=== PATIENT | female | born 1990 | race Caucasian/White ===

== ENCOUNTER 2017-07-13 09:30 | Inpatient (IN) | payer MEDICAID, OTHER ==
[2017-07-13] VITALS (122 sets, daily range): BP systolic 108–188; BP diastolic 65–115; PULSE 65–106; RESP 16–19; TEMP 97.5–98
[~2017-07-13] VITALS: Ht 167.6 cm; Wt 112.0 kg
[~2017-07-13 09:30] MED LIST: MIRA33504 PO
[2017-07-13] MEDS ORDERED: LACTATED RINGER'S 1000 ML INJ 1,000 ML IV SCH (11:01)
[2017-07-13] MEDS ORDERED: LACTATED RINGER'S 1000 ML INJ 1,000 ML IV PRN (11:01)
--- NOTE | 2017-07-13 11:12 | PD ---
HPI Chief Complaint ROM Date Seen: Jul 13, 2017 Travel History International Travel<30 Days: No Contact w/Intl Traveler<30Days: No Known Affected Area: No History of Present Illness HPI Pt is a 27y/o @ 34.4wks by 1st TM US not c/w LMP. She had initial PNC in [place] and recently relocated to [place] where she has been seen twice by Dr. Matamoros. She presents this morning to triage c/o LOF at 00:45am (clear). She reports ctx in her back q10m. +FM. 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) -- methadone use (60mg BID) -- trichamonis this preg (s/p abx and VERONICA) Weeks Gestation: 34 Para: 0 : 2 Last Menstrual Period: Jul 13, 2017 History Past Medical History Narrative Medical HCV h/o IVDA methadone use Obstetric History Obstetric History SAB x1 Past Surgical History Surgical History: No Previous Surgery Family History Family History: Negative Social History Alcohol Use: No Tobacco Use: Yes (1/2 PPD) Substance Abuse: Yes (h/o IVDA, opioids, on methadone) Allergies-Medications (Allergen,Severity, Reaction): Coded Allergies: amoxicillin (Unverified Allergy, Severe, SWELLING, 04/03/17) Uncoded Allergies: nyquil/dayquil (Adverse Reaction, Severe, Swelling, 09/23/11) Home Meds Active Scripts Polyethylene Glycol 3350 Powder (Miralax Powder) 17 Gm Powd, 17 GM PO DAILY for Constipation, #1 BOTTLE Mix and dissolve one measuring cap-ful (17 grams) in water or juice. Prov:Reji Moses MD 07/12/16 Review of Systems Except as stated in HPI: all other systems reviewed are Neg Physical Exam Vital Signs Date Time Temp Pulse Resp B/P (MAP) Pulse Ox O2 Delivery O2 Flow Rate FiO2 07/13/17 10:51 79 141/88 (105) Narrative General: well developed, well nourished, no acute distress HEENT: normocephalic atraumatic, extraocular movements intact, neck supple Abdomen: soft, gravid, nontender, nondistended Extremities: full range of motion, no pedal edema, no calf tenderness Skin: normal coloration, no rashes, no suspicious skin lesions noted Neurologic: cranial nerves 2-12 grossly intact, normal muscle tone, normal gait Psychiatric: normal mood and affect, appropriate FHTs: 135, moderate variability, occasional variables [place]: irregular Cvx: 3/70/-3 Data Data Vital Signs Reviewed: Yes Orders Orders Vital Signs (Adult) .ON ADMISSION (07/13/17 10:44) ^ Labor Status (07/13/17 10:44) ^ Non Stress Test (07/13/17 10:44) Pamg-1 Test .ONCE (07/13/17 10:44) Ob (2e) Additional Admit Info (07/13/17 11:02) Admit To Inpatient (07/13/17 ) Vital Signs (Adult) .Per protocol (07/13/17 11:01) Heart (07/13/17 11:01) Amnioinfusion (07/13/17 11:01) Urinary Catheter Management .ONCE (07/13/17 11:01) Diet Liquid (07/13/17 Lunch) Lactated Ringer's 1000 Ml Inj (Lr 1000 M (07/13/17 11:01) Lactated Ringer's 1000 Ml Inj (Lr 1000 M (07/13/17 11:01) Sodium Chlorid 0.9% 500 Ml Inj (Ns 500 M (07/13/17 11:15) Sodium Chlor 0.9% 1000 Ml Inj (Ns 1000 M (07/13/17 11:21) Lidocaine 1% Inj (50 Ml) (Xylocaine 1% I (07/13/17 11:15) Citric Acid-Sodium Citrate Liq (Bicitra (07/13/17 11:15) Ondansetron Inj (Zofran Inj) (07/13/17 11:15) Fentanyl Inj (Fentanyl Inj) (07/13/17 11:15) Fentanyl Inj (Fentanyl Inj) (07/13/17 11:15) Complete Blood Count With Diff (07/13/17 11:01) Hold Clot (07/13/17 11:01) Abo/Rh Blood Type (07/13/17 11:01) Urinalysis - C+S If Indicated (07/13/17 11:01) Drug Screen, Random Urine (07/13/17 11:01) Rapid Plasma Regin (Rpr) W Ttr (07/13/17 11:01) Resp Oxygen Non Rebreathe Mask (07/13/17 ) ^ Epidural / Intrathecal Infus (07/13/17 11:01) Oxytocin 30 Units-500ml Premix (Pitocin (07/13/17 11:15) Lidocaine 1% Inj (50 Ml) (Xylocaine 1% I (07/13/17 11:15) Light Mineral Oil (Muri-Lube Oil) (07/13/17 11:15) ^ Non Stress Test (07/13/17 11:01) Response To Medication .Post New Med Administration, Reaction (07/13/17 11:01) ^ Discontinue Medication (07/13/17 11:01) Oxytocin Drip (2-2-30) (07/13/17 11:15) Inpatient Certification (07/13/17 ) Comprehensive Metabolic Panel (07/13/17 11:01) Protein Creat Ratio, Random Ur (07/13/17 11:01) MDM Plan 27y/o @ 34.4wks with: 1. PPROM -- grossly ruptured -- admit to L&D, IOL with pitocin given >34wks EGA 2. FWB -- cat 2 tracing -- GBS unknown, cx sent; if positive, vanc given PCN severe allergy 3. HCV -- unknown viral load 4. h/o IVDA -- on methadone maintenance 60mg BID 5. elevated BPs -- asx, labs ordered to r/o PIH Diagnosis Diagnosis: Primary Impression: premature rupture of membranes (PPROM) with onset of labor within 24 hours of rupture in third trimester, antepartum Additional Impressions: 34 weeks gestation of Elevated blood pressure affecting in third trimester, antepartum Methadone maintenance treatment affecting in third trimester Viral hepatitis complicating , third trimester Jose Ramirez MD Jul 13, 2017 11:12
[2017-07-13] MEDS ORDERED: MINERAL OIL 10 ML VIAL TOPICAL PRN (11:15)
[2017-07-13] MEDS ORDERED: LIDOCAINE HCL 1% 50 ML VIAL INFIL PRN (11:15)
[2017-07-13] MEDS ORDERED: LIDOCAINE HCL 1% 50 ML VIAL I-DERMAL PRN (11:15)
[2017-07-13] MEDS ORDERED: SODIUM CHLORID 0.9% 500 ML INJ 500 ML IV PRN (11:15)
[2017-07-13] MEDS ORDERED: ONDANSETRON HCL 4 MG/2 ML VIAL IV PUSH PRN (11:15)
[2017-07-13] MEDS ORDERED: OXYTOCIN 30 UNITS-500ML PREMIX 500 ML IV SCH ×2 (11:15→20:45)
[2017-07-13] MEDS ORDERED: CITRIC ACID-SODIUM CITRATE LIQ 30 ML UDC PO SCH (11:15)
[2017-07-13] MEDS ORDERED: OXYTOCIN 30 UNITS-500ML PREMIX 500 ML IV ONE (11:15)
[2017-07-13] MEDS ORDERED: SODIUM CHLOR 0.9% 1000 ML INJ 1,000 ML IV PRN (11:21)
[2017-07-13 11:35] LABS: BLOOD, URINE SMALL (NEG); COMMENT (UR) CULT NOT INDICATED; CULTURE IF INDICATED CULT NOT INDICATED; GLUCOSE,URINE NEG (NEG); KETONE, URINE NEG (NEG); MUCUS URINE FEW /lpf (OCC); NITRITE,URINE NEG (NEG); SQUAMOUS EPITHELIAL CELL URINE 7 /hpf (0-5); URINE COLOR YELLOW (YELLW/STRAW)
[2017-07-13 12:39] LABS: BASOPHIL % 0.1 % (0.0-2.0); EOSINOPHIL # 0.2 TH/MM3 (0-0.4); EOSINOPHIL % 1.7 % (0.0-4.0); HEMATOCRIT 39.1 % (35.0-46.0); HEMO FLAGS DIFF FINAL; LYMPH % 18.3 % (9.0-44.0); LYMPHOCYTE # 2.2 TH/MM3 (1.0-4.8); MEAN CELL VOLUME 92.7 FL (80.0-100.0); MEAN CORPUSCULAR HEMOGLOBIN 31.1 PG (27.0-34.0); MEAN CORPUSCULAR HGB CONC 33.5 % (32.0-36.0); MONO % 5.8 % (0.0-8.0); NEUT % 74.1 % (16.0-70.0); PLATELET COUNT 206 TH/MM3 (150-450); RED BLOOD COUNT 4.22 MIL/MM3 (4.00-5.30); RED CELL DISTRIBUTION WIDTH 13.4 % (11.6-17.2); WHITE BLOOD COUNT 12.2 TH/MM3 (4.0-11.0)
[2017-07-13 13:05] LABS: ALT (GPT) 62 U/L (10-53); ANION GAP 7 MEQ/L (5-15); AST (GOT) 35 U/L (15-37); BICARBONATE 22.2 MEQ/L (21.0-32.0); BLOOD UREA NITROGEN 13 MG/DL (7-18); CHLORIDE 103 MEQ/L (98-107); GLOMERULAR FILTRATION RATE 125 ML/MIN (>89); POTASSIUM 4.3 MEQ/L (3.5-5.1); SODIUM (NA) 132 MEQ/L (136-145)
[2017-07-13 13:08] LABS: ALKALINE PHOSPHATASE 110 U/L (45-117); TOTAL BILIRUBIN ADULT 0.3 MG/DL (0.2-1.0)
[2017-07-13] MEDS ORDERED: METH40TA PO (13:39)
[2017-07-13] MEDS ORDERED: ePHEDrine/NS 25 MG/5 ML SYR ONE ×2 (14:00→14:11)
[2017-07-13] MEDS ORDERED: fentaNYL 2MCG-BUPIV 0.125% INJ 100 ML ONE (14:01)
[2017-07-13] MEDS ORDERED: BUPIVACAINE HCL PF 0.25% 10 ML VIAL ONE (14:10)
[2017-07-13] MEDS ORDERED: ePHEDrine/NS 25 MG/5 ML SYR IV PUSH PRN (15:15)
[2017-07-13] MEDS ORDERED: DO NOT ADMINISTER ANTICOAGULANTS PRN (15:15)
[2017-07-13] MEDS ORDERED: fentaNYL 2MCG-BUPIV 0.125% 100 ML EPIDURAL SCH (15:15)
[2017-07-13] MEDS ORDERED: NO SYSTEM NARCOTICS PRN (15:15)
[2017-07-13] MEDS ORDERED: DIPHTH/TETANUS/ACEL PERTUSSIS (BOOSTER) 0.5 ML VIAL/PFS IM ONE (16:00)
[2017-07-13] MEDS ORDERED: MEASLES, MUMPS, RUBELLA VACCINE 0.5 ML VIAL SQ ONE (16:00)
[2017-07-13] MEDS ORDERED: ALUMINUM/MAGNESIUM/SIMETH 30 ML CUP PO PRN (20:45)
[2017-07-13] MEDS ORDERED: WITCH HAZEL 50%/GLYCERIN 12.5% 40 PAD JAR TOPICAL PRN (20:45)
[2017-07-13] MEDS ORDERED: IBUPROFEN 800 MG TAB PO PRN (20:45)
[2017-07-13] MEDS ORDERED: ONDANSETRON ODT 4 MG TAB PO PRN (20:45)
[2017-07-13] MEDS ORDERED: BENZOCAINE 20% TOPICAL SPRAY 60 ML CAN TOPICAL PRN (20:45)
[2017-07-13] MEDS ORDERED: SODIUM CHLORIDE 0.9% FLUSH 10 ML FLUSH IV FLUSH PRN (20:45)
[2017-07-13] MEDS ORDERED: ACETAMINOPHEN 325 MG TAB PO PRN (20:45)
[2017-07-13] MEDS ORDERED: DOCUSATE SODIUM 50 MG/SENNA 8.6 MG TAB PO PRN (20:45)
--- NOTE | 2017-07-13 20:45 | HHI.PR ---
[employer] Note Note HPI Chief Complaint ROM Date Seen: Jul 13, 2017 Travel History International Travel<30 Days: No Contact w/Intl Traveler<30Days: No Known Affected Area: No History of Present Illness HPI Pt is a 27y/o @ 34.4wks by 1st TM US not c/w LMP. She had initial PNC in [place] and recently relocated to [place] where she has been seen twice by Dr. Matamoros. She presents this morning to triage c/o LOF at 00:45am (clear). She reports ctx in her back q10m. +FM. 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) -- methadone use (60mg BID) -- trichamonis this preg (s/p abx and VERONICA) Weeks Gestation: 34 Para: 0 : 2 Last Menstrual Period: Jul 13, 2017 History (Limited) History Past Medical History Narrative Medical HCV h/o IVDA methadone use Obstetric History Obstetric History SAB x1 Past Surgical History Surgical History: No Previous Surgery Family History Family History: Negative Social History Alcohol Use: No Tobacco Use: Yes (1/2 PPD) Substance Abuse: Yes (h/o IVDA, opioids, on methadone) Allergies-Medications Allergies-Medications (Allergen,Severity, Reaction): Coded Allergies: amoxicillin (Unverified Allergy, Severe, SWELLING, 04/03/17) Uncoded Allergies: nyquil/dayquil (Adverse Reaction, Severe, Swelling, 09/23/11) Home Meds Active Scripts Polyethylene Glycol 3350 Powder (Miralax Powder) 17 Gm Powd, 17 GM PO DAILY for Constipation, #1 BOTTLE Mix and dissolve one measuring cap-ful (17 grams) in water or juice. Prov:Reji Moses MD 07/12/16 ROS Review of Systems Except as stated in HPI: all other systems reviewed are Neg Physical Exam Physical Exam Vital Signs Date Time Temp Pulse Resp B/P (MAP) Pulse Ox O2 Delivery O2 Flow Rate FiO2 07/13/17 10:51 79 141/88 (105) Narrative General: well developed, well nourished, no acute distress HEENT: normocephalic atraumatic, extraocular movements intact, neck supple Abdomen: soft, gravid, nontender, nondistended Extremities: full range of motion, no pedal edema, no calf tenderness Skin: normal coloration, no rashes, no suspicious skin lesions noted Neurologic: cranial nerves 2-12 grossly intact, normal muscle tone, normal gait Psychiatric: normal mood and affect, appropriate FHTs: 135, moderate variability, occasional variables [place]: irregular Cvx: 3/70/-3 Data Data Data Vital Signs Reviewed: Yes Orders Orders Vital Signs (Adult) .ON ADMISSION (07/13/17 10:44) ^ Labor Status (07/13/17 10:44) ^ Non Stress Test (07/13/17 10:44) Pamg-1 Test .ONCE (07/13/17 10:44) Ob (2e) Additional Admit Info (07/13/17 11:02) Admit To Inpatient (07/13/17 ) Vital Signs (Adult) .Per protocol (07/13/17 11:01) Heart (07/13/17 11:01) Amnioinfusion (07/13/17 11:01) Urinary Catheter Management .ONCE (07/13/17 11:01) Diet Liquid (07/13/17 Lunch) Lactated Ringer's 1000 Ml Inj (Lr 1000 M (07/13/17 11:01) Lactated Ringer's 1000 Ml Inj (Lr 1000 M (07/13/17 11:01) Sodium Chlorid 0.9% 500 Ml Inj (Ns 500 M (07/13/17 11:15) Sodium Chlor 0.9% 1000 Ml Inj (Ns 1000 M (07/13/17 11:21) Lidocaine 1% Inj (50 Ml) (Xylocaine 1% I (07/13/17 11:15) Citric Acid-Sodium Citrate Liq (Bicitra (07/13/17 11:15) Ondansetron Inj (Zofran Inj) (07/13/17 11:15) Fentanyl Inj (Fentanyl Inj) (07/13/17 11:15) Fentanyl Inj (Fentanyl Inj) (07/13/17 11:15) Complete Blood Count With Diff (07/13/17 11:01) Hold Clot (07/13/17 11:01) Abo/Rh Blood Type (07/13/17 11:01) Urinalysis - C+S If Indicated (07/13/17 11:01) Drug Screen, Random Urine (07/13/17 11:01) Rapid Plasma Regin (Rpr) W Ttr (07/13/17 11:01) Resp Oxygen Non Rebreathe Mask (07/13/17 ) ^ Epidural / Intrathecal Infus (07/13/17 11:01) Oxytocin 30 Units-500ml Premix (Pitocin (07/13/17 11:15) Lidocaine 1% Inj (50 Ml) (Xylocaine 1% I (07/13/17 11:15) Light Mineral Oil (Muri-Lube Oil) (07/13/17 11:15) ^ Non Stress Test (07/13/17 11:01) Response To Medication .Post New Med Administration, Reaction (07/13/17 11:01) ^ Discontinue Medication (07/13/17 11:01) Oxytocin Drip (2-2-30) (07/13/17 11:15) Inpatient Certification (07/13/17 ) Comprehensive Metabolic Panel (07/13/17 11:01) Protein Creat Ratio, Random Ur (07/13/17 11:01) MDM MDM Plan 27y/o @ 34.4wks with: 1. PPROM -- grossly ruptured -- admit to L&D, IOL with pitocin given >34wks EGA 2. FWB -- cat 2 tracing -- GBS unknown, cx sent; if positive, vanc given PCN severe allergy 3. HCV -- unknown viral load 4. h/o IVDA -- on methadone maintenance 60mg BID 5. elevated BPs -- asx, labs ordered to r/o PIH Diagnosis Diagnosis: Primary Impression: premature rupture of membranes (PPROM) with onset of labor within 24 hours of rupture in third trimester, antepartum Additional Impressions: 34 weeks gestation of Elevated blood pressure affecting in third trimester, antepartum Methadone maintenance treatment affecting in third trimester Viral hepatitis complicating , third trimester Jose Ramirez MD Jul 13, 2017 11:12 Jose Ramirez MD Jul 13, 2017 20:45
--- NOTE | 2017-07-13 20:45 | PD.OB.DELI ---
Weeks gestation: 34 Gest age assessed date: Jul 13, 2017 Gest age assessed time: 12:00 Pt started active labor?: Yes Medical induction of labor?: Yes Artificial rupture of membrane: No Anesthesia: Epidural Episiotomy: None Vaginal Delivery: Normal Presentation: Occiput anterior Nuchal Cord: None Delayed cord clamping (45 sec): Yes : Female Delivery date: Jul 13, 2017 Delivery time: 20:26 One Minute : 7 Five Minute : 8 Weight: 2110g Placenta: Manual removal, Not Intact Laceration: 1 deg Repair: Vicryl running Estimated blood loss: 200 Jose Ramirez MD Jul 13, 2017 20:45
[2017-07-13] MEDS: SODIUM CHLORIDE 0.9% FLUSH 10 ML FLUSH IV FLUSH SCH (21:00)
[2017-07-13] MEDS ORDERED: MISOPROSTOL 200 MCG TAB RECTAL SCH (22:30)
[2017-07-14 00:30] VITALS: BP 131/86; PULSE 97; RESP 20; TEMP 98
[2017-07-14 07:00] VITALS: BP 123/80; PULSE 86; RESP 20; TEMP 98
[2017-07-14] MEDS ORDERED: METHADONE HCL 10 MG TAB PO SCH (07:00)
[2017-07-14] MEDS: METHADONE HCL 10 MG TAB PO SCH ×2 (07:00→18:52)
--- NOTE | 2017-07-14 07:57 | HHI.OB ---
Subjective Post Day: 1 Remarks Patient is a 27 year old who is day # 1 s/p vaginal delivery. AFVSS overnight. Lochia like a period. Mild cramping. Denies dysuria. No breast tenderness. Baby in NICU. Appetite good. No nausea or vomiting. Ambulating well. Denies calf pain or shortness of breath. Otherwise, she is doing well this morning and has no other concerns. Objective Vitals/I&O Vital Signs Date Time Temp Pulse Resp B/P (MAP) Pulse Ox O2 Delivery O2 Flow Rate FiO2 07/14/17 00:30 98.0 97 20 131/86 (101) 07/13/17 22:45 85 108/69 (82) 07/13/17 22:29 85 110/65 (80) 07/13/17 22:29 18 07/13/17 22:18 89 125/83 (97) 07/13/17 21:55 16 07/13/17 21:46 106 138/83 (101) 07/13/17 21:21 84 145/90 (108) 07/13/17 21:16 94 145/99 (114) 07/13/17 21:10 16 07/13/17 21:00 87 128/93 (105) 07/13/17 20:54 16 07/13/17 20:52 83 151/98 (115) 07/13/17 20:46 95 144/102 (116) 07/13/17 20:16 87 07/13/17 20:01 79 140/89 (106) 07/13/17 19:46 80 147/90 (109) 07/13/17 19:40 76 07/13/17 19:35 73 07/13/17 19:31 70 140/94 (109) 07/13/17 19:30 70 07/13/17 19:25 81 07/13/17 19:20 71 07/13/17 19:15 97.8 16 07/13/17 19:15 67 07/13/17 19:15 73 146/92 (110) 07/13/17 19:10 70 07/13/17 19:05 82 07/13/17 19:01 74 140/96 (111) 07/13/17 19:00 73 07/13/17 18:50 75 07/13/17 18:45 73 144/95 (111) 07/13/17 18:45 73 07/13/17 18:40 74 07/13/17 18:35 78 07/13/17 18:30 76 120/81 (94) 07/13/17 18:30 80 07/13/17 18:25 73 07/13/17 18:20 72 07/13/17 18:16 73 126/81 (96) 07/13/17 18:15 69 16 07/13/17 18:10 83 07/13/17 18:05 70 07/13/17 18:00 70 07/13/17 18:00 71 125/85 (98) 07/13/17 17:55 68 07/13/17 17:50 68 07/13/17 17:49 70 07/13/17 17:49 131/77 (95) 07/13/17 17:45 70 07/13/17 17:40 66 17 07/13/17 17:35 65 07/13/17 17:30 72 07/13/17 17:25 65 07/13/17 17:20 81 07/13/17 17:15 71 07/13/17 17:10 75 07/13/17 17:05 72 07/13/17 17:00 72 07/13/17 17:00 98.0 17 07/13/17 16:58 67 138/86 (103) 07/13/17 16:55 67 07/13/17 16:50 77 07/13/17 16:49 81 145/95 (112) 07/13/17 16:46 77 156/99 (118) 07/13/17 16:45 74 07/13/17 16:40 73 07/13/17 16:35 75 07/13/17 16:32 18 07/13/17 16:31 75 07/13/17 16:30 70 07/13/17 16:30 17 07/13/17 16:25 79 07/13/17 16:20 76 07/13/17 16:16 71 124/79 (94) 07/13/17 16:15 67 07/13/17 16:10 83 07/13/17 16:05 75 07/13/17 16:01 71 127/78 (94) 07/13/17 16:00 76 17 07/13/17 15:55 73 07/13/17 15:50 72 07/13/17 15:45 67 132/88 (103) 07/13/17 15:45 70 07/13/17 15:41 18 07/13/17 15:40 72 07/13/17 15:37 73 129/80 (96) 07/13/17 15:35 72 07/13/17 15:30 75 07/13/17 15:30 111/99 (103) 07/13/17 15:30 70 07/13/17 15:30 17 07/13/17 15:25 68 07/13/17 15:20 87 07/13/17 15:16 75 131/83 (99) 07/13/17 15:15 75 17 07/13/17 15:11 74 07/13/17 15:11 138/83 (101) 07/13/17 15:10 75 07/13/17 15:06 68 127/75 (92) 07/13/17 15:05 74 07/13/17 15:00 84 132/80 (97) 07/13/17 15:00 70 07/13/17 14:59 17 07/13/17 14:56 79 126/87 (100) 07/13/17 14:55 78 07/13/17 14:50 84 07/13/17 14:50 76 144/84 (104) 07/13/17 14:46 81 145/91 (109) 07/13/17 14:45 16 07/13/17 14:45 82 07/13/17 14:41 82 140/91 (107) 07/13/17 14:40 83 07/13/17 14:39 79 147/90 (109) 07/13/17 14:37 81 144/94 (111) 07/13/17 14:36 83 149/109 (122) 07/13/17 14:35 88 07/13/17 14:31 82 184/112 (136) 07/13/17 14:30 17 07/13/17 14:30 78 07/13/17 14:26 168/98 (121) 07/13/17 14:26 86 07/13/17 14:25 87 07/13/17 14:21 85 07/13/17 14:21 188/112 (137) 07/13/17 14:20 87 07/13/17 14:17 86 167/115 (132) 07/13/17 14:15 91 07/13/17 14:15 97.8 07/13/17 14:10 18 07/13/17 14:10 77 07/13/17 14:05 72 143/101 (115) 07/13/17 13:45 19 07/13/17 13:30 73 144/96 (112) 07/13/17 13:30 18 07/13/17 13:08 74 143/96 (112) 07/13/17 13:07 19 07/13/17 13:00 76 151/102 (118) 07/13/17 12:40 18 07/13/17 12:34 72 143/95 (111) 07/13/17 12:30 97.5 07/13/17 12:28 17 07/13/17 12:22 72 132/96 (108) 07/13/17 12:00 19 07/13/17 11:53 78 139/96 (110) 07/13/17 11:11 80 122/84 (97) 07/13/17 10:51 79 141/88 (105) Objective Remarks GENERAL: Well-nourished, well-developed patient. Obese. CARDIOVASCULAR: Regular rate and rhythm without murmurs, gallops, or rubs. +LE tightness, 1+ edema to knee. RESPIRATORY: Breath sounds equal bilaterally. No accessory muscle use. ABDOMEN/GI: Abdomen soft, non-tender. Fundus: Firm, non-tender at umbilicus. GENITOURINARY: Light bleeding noted on pad. EXTREMITIES: No cyanosis or edema, non-tender, without signs of DVT. Medications and IVs Current Medications Medications (Trade) Dose Ordered Sig/Brinda Route Start Time Stop Time Status Last Admin Miscellaneous Information No systemic narcotics to be given except... UNSCH PRN .XX 07/13/17 15:15 07/14/17 15:14 Miscellaneous Information DO NOT ADMINISTER ANY ANTICOAGUL... UNSCH PRN .XX 07/13/17 15:15 07/14/17 15:14 Fentanyl/ Bupivacaine HCl 100 ml @ 0 mls/hr TITRATE EPIDURAL 07/13/17 15:15 07/13/17 16:32 (ePHEDrine/NS 25 MG/5 ML SYR) 10 mg UNSCH PRN IV PUSH 07/13/17 15:15 07/14/17 15:14 (NS Flush) 2 ml BID IV FLUSH 07/13/17 21:00 (NS Flush) 2 ml UNSCH PRN IV FLUSH 07/13/17 20:45 (Tylenol) 650 mg Q4H PRN PO 07/13/17 20:45 (Motrin) 800 mg Q8H PRN PO 07/13/17 20:45 (Americaine 20% Top Spr) 1 spray Q4H PRN TOPICAL 07/13/17 20:45 (Tucks Pads) 1 applic QID PRN TOPICAL 07/13/17 20:45 (Katarina-Colace) 2 tab Q12H PRN PO 07/13/17 20:45 (Mag-Al Plus Susp Liq) 15 ml Q8H PRN PO 07/13/17 20:45 (Zofran Odt) 4 mg Q6H PRN PO 07/13/17 20:45 (Dolophine) 60 mg BID@0700,1900 PO 07/14/17 07:00 07/14/17 07:00 Assessment/Plan Assessment and Plan 27 y/o female who is PPD# 1 s/p . PPROM, GBS negative. Cocaine, Methadone, Tobacco use complicated period. Required cytotec for post- hemorrhage yesterday evening. Post- care -VS within normal limits -Repeat CBC today for post- hemorrhage surveillance. Clinically appears well -Continue routine care. -Tylenol and Motrin PRN pain in addition to home Methadone -Encouraged OOB. Advised pelvic rest for 6 wks. -Re: ctrl, she would like OCPs, does not desire Depo or long-acting option.. -Anticipate discharge tomorrow. Increased antepartum BP -Now wnl, will monitor -Will recommend 1 week follow up at discharge Substance Use -Hx IVDU, clean 1 yr prior to relapse with PO drugs in 1st trimester -Methadone 60mg BID continued post- -+Cocaine on UDS HepC -unknown viral load Tobacco use complicating Celsa Alonzo DR., MD R2 Jul 14, 2017 07:57
[2017-07-14] MEDS: SODIUM CHLORIDE 0.9% FLUSH 10 ML FLUSH IV FLUSH SCH ×2 (09:00→21:00)
[2017-07-14 11:11] LABS: AUTOMATED NEUTROPHIL # 7.6 TH/MM3 (1.8-7.7); BASOPHIL % 0.3 % (0.0-2.0); EOSINOPHIL # 0.2 TH/MM3 (0-0.4); EOSINOPHIL % 1.7 % (0.0-4.0); HEMATOCRIT 35.1 % (35.0-46.0); HEMO FLAGS DIFF FINAL; LYMPH % 20.4 % (9.0-44.0); LYMPHOCYTE # 2.2 TH/MM3 (1.0-4.8); MEAN CELL VOLUME 93.5 FL (80.0-100.0); MEAN CORPUSCULAR HEMOGLOBIN 31.5 PG (27.0-34.0); MEAN CORPUSCULAR HGB CONC 33.7 % (32.0-36.0); MONO % 5.8 % (0.0-8.0); NEUT % 71.8 % (16.0-70.0); PLATELET COUNT 187 TH/MM3 (150-450); RED BLOOD COUNT 3.76 MIL/MM3 (4.00-5.30); RED CELL DISTRIBUTION WIDTH 13.7 % (11.6-17.2); WHITE BLOOD COUNT 10.5 TH/MM3 (4.0-11.0)
[2017-07-14 11:41] LABS: ANION GAP 5 MEQ/L (5-15); BICARBONATE 26.6 MEQ/L (21.0-32.0); BLOOD UREA NITROGEN 8 MG/DL (7-18); CHLORIDE 105 MEQ/L (98-107); GLOMERULAR FILTRATION RATE 91 ML/MIN (>89); POTASSIUM 4.7 MEQ/L (3.5-5.1); SODIUM (NA) 137 MEQ/L (136-145)
[2017-07-14 11:42] LABS: ALT (GPT) 61 U/L (10-53); AST (GOT) 35 U/L (15-37)
[2017-07-14 11:45] LABS: ALKALINE PHOSPHATASE 104 U/L (45-117); TOTAL BILIRUBIN ADULT 0.2 MG/DL (0.2-1.0)
[2017-07-14] MEDS ORDERED: NICOTINE 21 MG/24 HR PATCH T-DERMAL SCH (15:30)
[2017-07-14 19:00] VITALS: BP 142/91; PULSE 97; RESP 17; TEMP 98.2
[2017-07-15] MEDS: METHADONE HCL 10 MG TAB PO SCH (07:02)
[2017-07-15 07:10] VITALS: BP 135/90; PULSE 78; RESP 18; TEMP 97.7
--- NOTE | 2017-07-15 07:48 | HHI.DCPOC ---
Discharge Care Plan Diagnosis: (1) Vaginal delivery (2) Elevated blood pressure affecting in third trimester, antepartum Report Symptoms to Your Doctor -Temperature above 100.5 degrees -Redness, of incision or excessive or foul smelling drainage -Unusual pain or calf pain -Increased vaginal bleeding -Painful or difficulty urinating -Feelings of extreme sadness or anxiety after 2 weeks Goals to Promote Your Health * To prevent worsening of your condition and complications * To maintain your health at the optimal level Directions to Meet Your Goals Take your medications as prescribed Follow your dietary instruction Follow activity as directed Ensure plenty of rest for recovery Drink fluids for hydration Keep your appointments as scheduled Take your immunizations and boosters as scheduled If your symptoms worsen call your PCP, if no PCP go to Urgent Care Center or Emergency Room Smoking is Dangerous to Your Health. Avoid second hand smoke Call the 24-hour crisis hotline for domestic abuse at Celsa Chairez MD R2 Jul 15, 2017 07:48
--- NOTE | 2017-07-15 07:52 | HHI.OB ---
Subjective Post Day: 2 Remarks Patient is a 27 year old who is day # 2 s/p vaginal delivery. AFVSS overnight. Lochia decreasing. Mild cramping. Denies dysuria. No breast tenderness. Baby in NICU. Appetite good. No nausea or vomiting. Ambulating well. Denies calf pain or shortness of breath. Otherwise, she is doing well this morning and has no other concerns. Objective Vitals/I&O Vital Signs Date Time Temp Pulse Resp B/P (MAP) Pulse Ox O2 Delivery O2 Flow Rate FiO2 07/14/17 19:00 98.2 97 17 142/91 (108) Objective Remarks GENERAL: Well-nourished, well-developed patient. Obese. CARDIOVASCULAR: Regular rate and rhythm without murmurs, gallops, or rubs. +LE tightness, 1+ edema to knee. RESPIRATORY: Breath sounds equal bilaterally. No accessory muscle use. ABDOMEN/GI: Abdomen soft, non-tender. Fundus: Firm, non-tender at umbilicus. GENITOURINARY: Light bleeding noted on pad. EXTREMITIES: No cyanosis or edema, non-tender, without signs of DVT. Medications and IVs Current Medications Medications (Trade) Dose Ordered Sig/Brinda Route Start Time Stop Time Status Last Admin Fentanyl/ Bupivacaine HCl 100 ml @ 0 mls/hr TITRATE EPIDURAL 07/13/17 15:15 07/13/17 16:32 (NS Flush) 2 ml BID IV FLUSH 07/13/17 21:00 (NS Flush) 2 ml UNSCH PRN IV FLUSH 07/13/17 20:45 (Tylenol) 650 mg Q4H PRN PO 07/13/17 20:45 (Motrin) 800 mg Q8H PRN PO 07/13/17 20:45 (Americaine 20% Top Spr) 1 spray Q4H PRN TOPICAL 07/13/17 20:45 (Tucks Pads) 1 applic QID PRN TOPICAL 07/13/17 20:45 (Katarina-Colace) 2 tab Q12H PRN PO 07/13/17 20:45 (Mag-Al Plus Susp Liq) 15 ml Q8H PRN PO 07/13/17 20:45 (Zofran Odt) 4 mg Q6H PRN PO 07/13/17 20:45 (Dolophine) 60 mg BID@0700,1900 PO 07/14/17 07:00 07/15/17 07:02 (Habitrol 21 Mg Patch.24 Hr) 1 patch DAILY T-DERMAL 07/14/17 15:30 07/14/17 16:03 Miscellaneous Information 1 DAILY T-DERMAL 07/15/17 09:00 Assessment/Plan Assessment and Plan 27 y/o female who is PPD# 2 s/p . PPROM, GBS negative. Cocaine, Methadone, Tobacco use complicated period. Required cytotec for post- hemorrhage with normal post- CBC changes (hgb 13.1-->11.8). Post- care -VS within normal limits -Repeat CBC wnl -Continue routine care. -Home Methadone. Patient declines Tylenol and Motrin -Encouraged OOB. Advised pelvic rest for 6 wks. -Re: ctrl, she would like OCPs, does not desire Depo or long-acting option. Wants to discuss with PCP. -Discharge today. Increased antepartum BP -Within normal limits post- -Recommended 1 week follow up at discharge Substance Use -Hx IVDU, clean 1 yr prior to relapse with PO drugs in 1st trimester -Methadone 60mg BID continued post- -+Cocaine on UDS HepC -unknown viral load Tobacco use complicating DW Celsa Patricia MD R2 Jul 15, 2017 07:52
[2017-07-15] MEDS ORDERED: REMOVE OLD PATCH T-DERMAL SCH (09:00)
== END 2017-07-15 10:24 | disposition home or self-care (01) | DRG 767 ==
LOC: HOBED 09:30 → H2EB 11:07 → H1EA 23:51
PROVIDERS: ADMIT Obstetrics & Gynecology; ATTEND Obstetrics & Gynecology
PROC: 10E0XZZ Delivery of Products of Conception, External Approach (ICD-10-PCS; principal; 2017-07-13)
PROC: 10D17Z9 Manual Extraction of Products of Conception, Retained, Via Natural or Artificial Opening (ICD-10-PCS; 2017-07-13)
PROC: 0HQ9XZZ Repair Perineum Skin, External Approach (ICD-10-PCS; 2017-07-13)
PROC: 3E0P3VZ Introduction of Hormone into Female Reproductive, Percutaneous Approach (ICD-10-PCS; 2017-07-13)
PROC: 3E0R3BZ Introduction of Anesthetic Agent into Spinal Canal, Percutaneous Approach (ICD-10-PCS; 2017-07-13)
PROC: 00HU33Z Insertion of Infusion Device into Spinal Canal, Percutaneous Approach (ICD-10-PCS; 2017-07-13)
DX: O42.013 Preterm premature rupture of membranes, onset of labor within 24 hours of rupture, third trimester (principal); O99.324 Drug use complicating childbirth; F11.20 Opioid dependence, uncomplicated; O98.42 Viral hepatitis complicating childbirth; B19.20 Unspecified viral hepatitis C without hepatic coma; O72.2 Delayed and secondary postpartum hemorrhage; O99.334 Smoking (tobacco) complicating childbirth; O26.893 Other specified pregnancy related conditions, third trimester; R03.0 Elevated blood-pressure reading, without diagnosis of hypertension; O70.0 First degree perineal laceration during delivery; Z3A.34 34 weeks gestation of pregnancy; Z37.0 Single live birth
CPT/HCPCS: 59025; 76937; 80053; 80307; 81001; 82570; 84156; 85025; 86592; 86703; 86900; 86901; 87081; 87150; 88307; J2590; J3010; J7120